=== PATIENT | male | born 1960 | race Caucasian/White ===

== ENCOUNTER 2021-02-05 11:25 | Emergency (ER) | payer BC ==
[~2021-02-05] VITALS: Ht 170.2 cm; Wt 99.8 kg
--- NOTE | 2021-02-05 12:00 | NUR ---
PT SENT BY CLINIC D/T ELEVATED BP REPORTED IN THE 190s. PT IS AAOX4. NOT IN RESP DISTRESS. AMBULATORY. UPON RECEIVING PT, BP WAS NOTED WITH BP OF 150/82. AWAITING MD FOR EVAL.
--- NOTE | 2021-02-05 12:42 | NUR ---
IV LINE NOT NEEDED PER
[2021-02-05 12:54] LABS: HEMOGLOBIN 11.3 g/dL (13.5-17.5)
[2021-02-05 12:55] LABS: CALCIUM, SERUM 8.7 mg/dL (8.5-10.1); CARBON DIOXIDE 28 mmol/L (21-32); CHLORIDE 107 mmol/L (98-107); GLUCOSE 92 mg/dL (74-106); POTASSIUM 4.3 mmol/L (3.5-5.1); SODIUM SERUM 141 mmol/L (136-145); UREA NITROGEN, BLOOD 11 mg/dL (7-18)
[2021-02-05 12:59] LABS: HEMATOCRIT 36 % (39-51); MEAN CORPUSCULAR HGB CONC 32 g/dl (31.0-36.0); MEAN CORPUSCULAR VOLUME 67 fL (80-96); PLATELET COUNT (AUTO) 176 /CMM (150-450); RED BLOOD CELL COUNT(AUTO) 5.36 MIL/uL (4.5-6.0); WHITE BLOOD COUNT (AUTO) 5.1 K/uL (4.3-11.0)
[2021-02-05 13:47] LABS: BASOPHILS % (MANUAL) 1 % (0.0-2.0); EOSINOPHILS % (MANUAL) 2 % (0-4); LYMPHOCYTES % (MANUAL) 42 % (16-48); MONOCYTES % (MANUAL) 8 % (0-11.0); NEUTROPHILS % (MANUAL) 47 (42-76)
[2021-02-05 14:34] VITALS: BP 140/86
--- NOTE | 2021-02-05 14:34 | NUR ---
Patient discharged to home in stable condition. Written and verbal after care instructions given. Patient verbalizes understanding of instruction. Pt ambulatory with a steady gait
== END 2021-02-05 14:29 | disposition home or self-care (01) ==
LOC: ER 11:25
DX: I10 Essential (primary) hypertension (principal); R42 Dizziness and giddiness; R51.9 Headache, unspecified; Z88.2 Allergy status to sulfonamides
CPT/HCPCS: 36415; 70450-TC; 71045-TC; 80048-TC; 84484-TC; 85025-TC